=== PATIENT | male | born 1965 ===

== ENCOUNTER 2021-03-09 07:32 | Outpatient (CLI) | payer BC, OTHER ==
[~2021-03-09 07:32] MED LIST: REGADENOSON 0.4 MG/5 ML SYRINGE ONE
== END 2021-03-09 23:59 | disposition home or self-care (01) ==
LOC: CFH 07:32 → CVU 23:59
PROVIDERS: ATTEND Internal Medicine Cardiovascular Disease
DX: I11.9 Hypertensive heart disease without heart failure (principal); R55 Syncope and collapse; R06.02 Shortness of breath
CPT/HCPCS: 78452; 93017; 93306; 93356; A9502; J2785